=== PATIENT | female | born 1965 | race Caucasian/White ===

== ENCOUNTER 2023-12-01 08:53 | Outpatient (CLI) | payer BC, SELFPAY ==
--- NOTE | ~2023-12-01 | US_ITS ---
US arterial ankle brachial ind INDICATION: Peripheral vascular disease. TECHNIQUE: Segmental pressures and plethysmographic and Doppler waveforms of the brachial and lower e xtremity arteries were obtained. COMPARISON: None. FINDINGS: Right and left brachial artery pressures of 140 mm Hg and 153 mm Hg, respectively, are concordant (no rmal difference <= 30 mmHg). The right ankle-brachial index (JAELYN) is 1.22 (normal >= 0.9-1.0). The right great toe-brachial index (TBI) is 0.63 (normal >= 0.60). The left JAELYN is 1.13. The left TBI is 0.74. IMPRESSION: 1. Normal ankle-brachial indices. Reviewed, dictated and finalized at location B.
== END 2023-12-01 08:54 | disposition home or self-care (01) ==
PROVIDERS: PCP Family Medicine; Visit Provider Physician Assistant Medical
DX: I73.9 Peripheral vascular disease, unspecified (principal)
CPT/HCPCS: 93922

== ENCOUNTER 2023-12-29 02:46 | Day surgery (SDC) | payer BC, SELFPAY ==
[2023-12-16 13:15] VITALS: BMI 46.1
[2023-12-29] MEDS: LACTATED RINGERS 1,000 ML 150 ML IV CONT (13:42)
[2023-12-29 13:43] VITALS: BP 152/84; PULSE 73; RESP 18; TEMP 36.5; O2SAT 97
--- NOTE | 2023-12-29 14:07 | WPDHPUPDATE1 ---
History and Physical Update Update Date/Time: 12/29/23 14:07 History and Physical has been reviewed, including an updated exam of the patient. There are NO changes in the patient's condition. Risks, benefits, and alternatives have been discussed and questions answered. Patient agrees to proceed with procedure.
--- NOTE | 2023-12-29 14:09 | WPDANESEPPF ---
Anes - Initial Pre Proc Eval Procedure: Operation Date: 12/29/23 15:00 Proposed Procedures p Esophagogastroduodenoscopy - Grover Sauer MD Date/Time: 12/29/23 14:09 Surgeon: Grover Sauer MD Pre Op Diagnosis: Dysphagia unspecified, GERD without esophagitis, Patient Data Age: 58 Gender: F Height: 1.63 m Weight: 123.2 kg Last Vital Signs Temp 97.7 F 12/29/23 13:43 Pulse 73 12/29/23 13:43 Resp 18 12/29/23 13:43 BP 152/84 H 12/29/23 13:43 Pulse Ox 97 12/29/23 13:43 O2 Del Method Room Air 12/29/23 13:43 Allergies Allergy/AdvReac Type Severity Reaction Status Date / Time No Known Allergies Allergy Verified 12/29/23 13:33 Home Medications Medication Instructions Recorded Confirmed Type fluticasone propionate 50 1 spray intranasal Q12H #16 grams 10/29/23 12/16/23 Rx mcg/actuation nasal spray,suspension (Flonase Allergy Relief) venlafaxine 75 mg capsule,extended See Rx Instructions .Route 11/15/23 12/16/23 Rx release 24 hr .COMPLEX #30 ea metoprolol succinate 50 mg 50 mg PO DAILY #90 tabs 11/23/23 12/29/23 Rx tablet,extended release 24 hr Patient hx anesthesia problems: none Family hx anesthesia problems: none Results Review: All pre-operative results and documents have been reviewed as part of the pre-operative evaluation. [facility] Past Medical History Medical History Depression Duodenal ulcer Gastroparesis Hypertension Normal colonoscopy (~2017) Viral syndrome Surgical History Surgical History History of esophagogastroduodenoscopy (EGD) (~2017) Hx of cholecystectomy (~1995) Hx of removal of ovary Family History Family History Other Diabetes mellitus Family history of arthritis Family history of malignant neoplasm Family history of mental disorder Social History Social History Smoking status: Never smoker Second hand tobacco smoke exposure: No Alcohol intake: current Substance use: never Substance use type: does not use Living arrangements: with family Spiritual care concerns: No Anes - Eval Final PreProcedure Day of Procedure 12/29/23 14:09 Patient weight: morbidly obese Heart: regular rate and rhythm Lungs: clear to auscultation Airway: Mallampati scale class II Neurological: alert and oriented Last oral intake: >/= 8 hours ASA classification: III Emergent: no Anesthetic plan: proceed Anesthesia type and monitoring: general GIVS and standard monitoring Results Review: All pre-operative results and documents have been reviewed as part of the pre-operative evaluation. Informed Consent: The patient's anesthetic plan and its attendant risks and benefits were discussed with the patient/family/POA. Questions were solicited and answers provided to the satisfaction of the patient/family/POA.
[2023-12-29 14:44] VITALS: BP 117/83; PULSE 71; RESP 20; O2SAT 100
[2023-12-29 14:54] VITALS: BP 134/87; PULSE 68; RESP 17; O2SAT 100
[2023-12-29 15:04] VITALS: BP 154/88; PULSE 63; RESP 16; O2SAT 100
== END 2023-12-29 15:15 | disposition home or self-care (01) ==
PROVIDERS: PCP Family Medicine; Referring Provider Nurse Practitioner; Visit Provider Internal Medicine Gastroenterology
PROC: 0DJ08ZZ Inspection of Upper Intestinal Tract, Via Natural or Artificial Opening Endoscopic (ICD-10-PCS; CPT 43235; principal; 2023-12-29 15:00)
DX: K21.00 Gastro-esophageal reflux disease with esophagitis, without bleeding (principal); K29.50 Unspecified chronic gastritis without bleeding; K22.2 Esophageal obstruction; K44.9 Diaphragmatic hernia without obstruction or gangrene; I10 Essential (primary) hypertension; F32.A Depression, unspecified; K31.84 Gastroparesis; E66.01 Morbid (severe) obesity due to excess calories; Z68.42 Body mass index [BMI] 45.0-49.9, adult; Z79.51 Long term (current) use of inhaled steroids; Z98.890 Other specified postprocedural states; Z90.49 Acquired absence of other specified parts of digestive tract; Z86.010 Personal history of colon polyps; Z80.9 Family history of malignant neoplasm, unspecified
CPT/HCPCS: 43249; 43239; 88305; C1726; J2704; J7120